=== PATIENT | female | born 1995 | race Caucasian/White ===

== ENCOUNTER 2017-02-08 14:39 | Emergency (ER) | payer OTHER ==
[~2017-02-08 14:39] MED LIST: AUGMENTIN PO; BACTROBAN22 GM TP; FLEXERIL10 MG PO; NO MEDICATIONS; VOLTAREN75 MG PO
[2017-02-08 14:56] LABS: INFLUENZA A NEG (NEG); INFLUENZA B NEG (NEG)
== END 2017-02-08 15:21 | disposition home or self-care (01) ==
LOC: SED 14:39
PROVIDERS: Nurse Practitioner
DX: B34.9 Viral infection, unspecified (principal)
CPT/HCPCS: 87651; 87804; 99282